=== PATIENT | male | born 1950 | race Caucasian/White ===

== ENCOUNTER 2021-07-28 15:21 | Emergency (ER) | payer OTHER, MEDICARE ==
[2021-07-28 16:46] LABS: HEMOGLOBIN 17.3 gm/dl (14.0-17.5); RED BLOOD COUNT 5.21 M/UL (4.20-5.50); WHITE BLOOD COUNT 8.7 K/UL (4.5-11.0)
[2021-07-28 17:10] LABS: BUN/CREATININE RATIO 15 (0-10)
== END 2021-07-28 18:50 | disposition home or self-care (01) ==
LOC: ER1 15:21
PROVIDERS: Family Medicine
DX: R42 Dizziness and giddiness (principal); R55 Syncope and collapse; J44.9 Chronic obstructive pulmonary disease, unspecified
CPT/HCPCS: 71045; 80053; 82550; 82553; 83874; 84484; 85025; 93005; 99284

== ENCOUNTER → 2021-12-12 | Outpatient (CLI) | payer MEDICARE, OTHER ==
[~2021-12-12] VITALS: Ht 167.6 cm; Wt 62.6 kg
== END ==
LOC: EROP 10:52
DX: U07.1 COVID-19 (principal); Z23 Encounter for immunization; I10 Essential (primary) hypertension; J98.4 Other disorders of lung
CPT/HCPCS: M0247; Q0247